=== PATIENT | female | born 1955 | race Caucasian/White ===

== ENCOUNTER 2023-06-11 12:00 | Outpatient (RCR) | payer MEDICARE, SELFPAY | END 2023-06-12 15:29 | disposition home or self-care (01) | LOC: HO.PT 12:00 | PROVIDERS: PCP Nurse Practitioner Family; Visit Provider Orthopaedic Surgery | DX: M17.11 Unilateral primary osteoarthritis, right knee (principal) | CPT/HCPCS: 97110; 97140; 97161; 97530 ==

== ENCOUNTER 2023-06-25 10:45 | Outpatient (REF) | payer MEDICARE, SELFPAY ==
[2023-06-25 14:05] LABS: MANUAL DIFF FLAG NO
[2023-06-25 14:13] LABS: Basophils Percent Auto 0.6 % (0-2); Eosinophils Absolute Auto 0.2 X10*3/uL (0.0-0.4); Eosinophils Percent Auto 2.4 % (0-4); Hematocrit 39.3 % (37.0-47.0); Imm Gran Abs Auto 0.02 X10*3/uL (0.00-0.03); Imm Gran Pct Auto 0.3 % (0.0-0.4); Lymphocytes Absolute Auto 1.9 X10*3/uL (1.2-4.9); Lymphocytes Percent Auto 30.6 % (20-40); Mean Corpuscular HGB Conc 33.1 g/dl (31.0-35.0); Mean Corpuscular Hemoglobin 29.4 pg (27.0-33.0); Mean Corpuscular Volume 88.9 fL (80.0-98.0); Mean Platelet Volume 10.4 fL (9.4-12.3); Monocytes Absolute Auto 0.7 X10*3/uL (0.1-1.2); Monocytes Percent Auto 10.4 % (2-11); Neutrophils Absolute Auto 3.5 x10*3/uL (2.0-8.3); Neutrophils Percent Auto 55.7 % (45-73); Platelet Count 299 X10*3/uL (160-400); Red Blood Count 4.42 X10*6/uL (4.20-5.50); Red Cell Distribution Width 12.6 % (11.0-16.0); White Blood Count 6.3 X10*3/uL (4.8-10.8)
[2023-06-25 14:18] LABS: Estimated Average Glucose 171 mg/dL; Hemoglobin A1c % 7.6 % (<6.0)
[2023-06-25 14:23] LABS: Alanine Aminotransferase 41 U/L (0-31); Albumin Level 4.2 g/dL (3.5-5.0); Alkaline Phosphatase 123 U/L (39-117); Anion Gap 13 (12-20); Aspartate Amino Transferase 34 U/L (5-31); Bilirubin Total 0.6 mg/dL (0.0-1.0); Blood Urea Nitrogen 10 mg/dL (9-16); Calcium 9.9 mg/dL (8.4-10.2); Carbon Dioxide 25 mmol/L (22-29); Chloride 104 mmol/L (96-108); Cholesterol 286 mg/dL (<200); Estimated Glomerular Filt Rate > 60; Glucose Random 191 mg/dL (60-115); HDL Cholesterol 49 mg/dL (>40); LDL Cholesterol Calculated 175 mg/dL (<100); Potassium 4.3 mmol/L (3.3-5.1); Sodium 138 mmol/L (135-145); Total Protein 7.5 g/dL (6.5-8.0); Triglycerides 311 mg/dL (<150)
[2023-06-25 14:42] LABS: Thyroid Stimulating Hormone 1.06 uIU/mL (0.32-4.0)
[2023-06-25 14:46] LABS: Creatinine Urine 29.46 mg/dL; Microalbum/Creatinine Ratio Ur 33.9 ug/mg cr (<30)
== END 2023-06-25 10:46 | disposition home or self-care (01) ==
LOC: HO.10HDL 10:45
PROVIDERS: Visit Provider Internal Medicine
DX: E03.8 Other specified hypothyroidism (principal); E11.9 Type 2 diabetes mellitus without complications; E78.00 Pure hypercholesterolemia, unspecified; I10 Essential (primary) hypertension; Z79.01 Long term (current) use of anticoagulants
CPT/HCPCS: 36415; 80053; 80061; 82043; 82570; 83036; 84443; 85025

== ENCOUNTER 2023-07-11 11:22 | Outpatient (REF) | payer MEDICARE, SELFPAY ==
--- NOTE | ~2023-07-11 | XR_ITS ---
EXAMINATION: XR HAND, RIGHT CLINICAL INFORMATION: Right fifth finger pain status-post fall. COMPARISON: None available. TECHNIQUE: PA, lateral, and oblique views of the right hand. FINDINGS: Bony alignment and mineralization are normal. There is a neutral ulnar variance. There is moderate to marked osteoarthritic change of the interphalangeal joint of the thumb and of the second, third and fifth distal interphalangeal joints. There is mild osteoarthritic change of the first metacarpophalangeal joint. There is moderate osteoarthritic change of the first carpometacarpal joint. No fracture or dislocation is seen. The proximal and distal carpal rows are intact. No focal bone erosion is seen. There is no focal soft tissue swelling, gas or foreign body. XR/XR hand RT min 3V IMPRESSION: There is multi-focal osteoarthritic change of the right hand and wrist, as detailed. No abnormal bone erosion is noted. No fracture or dislocation is seen.
== END 2023-07-11 11:23 | disposition home or self-care (01) ==
LOC: HO.XRAY 11:22
PROVIDERS: PCP Internal Medicine; Visit Provider Internal Medicine
DX: S69.91XD Unspecified injury of right wrist, hand and finger(s), subsequent encounter (principal)
CPT/HCPCS: 73130

== ENCOUNTER 2023-10-03 08:58 | Outpatient (REF) | payer MEDICARE, SELFPAY ==
[2023-10-03 10:20] LABS: Estimated Average Glucose 177 mg/dL; Hemoglobin A1c % 7.8 % (<6.0)
[2023-10-03 10:37] LABS: Alanine Aminotransferase 52 U/L (0-31); Albumin Level 4.1 g/dL (3.5-5.0); Alkaline Phosphatase 128 U/L (39-117); Anion Gap 14 (12-20); Aspartate Amino Transferase 32 U/L (5-31); Bilirubin Total 0.7 mg/dL (0.0-1.0); Blood Urea Nitrogen 16 mg/dL (9-16); Calcium 9.5 mg/dL (8.4-10.2); Carbon Dioxide 24 mmol/L (22-29); Chloride 103 mmol/L (96-108); Cholesterol 277 mg/dL (<200); Estimated Glomerular Filt Rate > 60; Glucose Random 167 mg/dL (60-115); HDL Cholesterol 51 mg/dL (>40); LDL Cholesterol Calculated 160 mg/dL (<100); Potassium 4.5 mmol/L (3.3-5.1); Sodium 136 mmol/L (135-145); Total Protein 7.5 g/dL (6.5-8.0); Triglycerides 330 mg/dL (<150)
== END 2023-10-03 08:59 | disposition home or self-care (01) ==
LOC: HO.LAB 08:58
PROVIDERS: PCP Internal Medicine; Visit Provider Internal Medicine
DX: E11.65 Type 2 diabetes mellitus with hyperglycemia (principal); E78.00 Pure hypercholesterolemia, unspecified; I10 Essential (primary) hypertension; S67.198A Crushing injury of other finger, initial encounter
CPT/HCPCS: 36415; 80053; 80061; 83036

== ENCOUNTER 2024-01-02 09:37 | Outpatient (REF) | payer MEDICARE, SELFPAY ==
[2024-01-02 10:34] LABS: Estimated Average Glucose 189 mg/dL; Hemoglobin A1c % 8.2 % (<6.0)
[2024-01-02 11:04] LABS: Alanine Aminotransferase 50 U/L (0-31); Alkaline Phosphatase 124 U/L (39-117); Anion Gap 14 (12-20); Aspartate Amino Transferase 39 U/L (5-31); Bilirubin Total 0.6 mg/dL (0.0-1.0); Blood Urea Nitrogen 16 mg/dL (9-16); Calcium 9.3 mg/dL (8.4-10.2); Carbon Dioxide 22 mmol/L (22-29); Chloride 107 mmol/L (96-108); Cholesterol 111 mg/dL (<200); Estimated Glomerular Filt Rate > 60; Glucose Random 191 mg/dL (60-115); HDL Cholesterol 43 mg/dL (>40); LDL Cholesterol Calculated 34 mg/dL (<100); Potassium 4.7 mmol/L (3.3-5.1); Sodium 138 mmol/L (135-145); Total Protein 7.1 g/dL (6.5-8.0); Triglycerides 171 mg/dL (<150)
[2024-01-02 11:13] LABS: Thyroid Stimulating Hormone 0.46 uIU/mL (0.32-4.0)
== END 2024-01-02 09:38 | disposition home or self-care (01) ==
LOC: HO.LAB 09:37
PROVIDERS: PCP Internal Medicine; Visit Provider Internal Medicine
DX: E03.8 Other specified hypothyroidism (principal); E11.65 Type 2 diabetes mellitus with hyperglycemia; E78.00 Pure hypercholesterolemia, unspecified; I10 Essential (primary) hypertension; Z68.30 Body mass index [BMI] 30.0-30.9, adult
CPT/HCPCS: 36415; 80053; 80061; 83036; 84443

== ENCOUNTER 2024-01-24 08:41 | Outpatient (REF) | payer MEDICARE, SELFPAY ==
--- NOTE | ~2024-01-24 | US_ITS ---
EXAMINATION: US ABDOMEN COMPLETE CLINICAL INFORMATION: Elevated LFTs. COMPARISON: None available. TECHNIQUE: Real-time imaging of the abdominal viscera. FINDINGS: PANCREAS: Normal. ABDOMINAL AORTA: The proximal, mid, and distal segments are normal in caliber. INFERIOR VENA CAVA: Visualized portions are normal. LIVER: The left lobe of the liver is slightly decreased in size, measures 7.7 cm. Otherwise, the liver is within normal limits. The liver contour is normal. Parenchymal echogenicity is normal. No focal hepatic lesion. There is no intrahepatic biliary duct dilatation seen. GALLBLADDER: Surgically absent. COMMON BILE DUCT: Normal in caliber measuring 0.5 cm in diameter. RIGHT KIDNEY: Normal. No hydronephrosis. No renal calculi or focal parenchymal lesions. The kidney measures 12.4 cm in maximum dimension. LEFT KIDNEY: 0.6 x 0.5 x 0.5 cm upper pole and 0.2 x 0.2 x 0.2 cm lower pole nonobstructing renal calculi are seen. No hydronephrosis or focal parenchymal lesions. The kidney measures 11.4 cm in maximum dimension. SPLEEN: Normal. The spleen measures 10.3 cm in maximum dimension. FREE FLUID: None. US/US abdomen complete IMPRESSION: 1. The left lobe of the liver is slightly decreased in size. 2. Prior cholecystectomy. 3. 2 small nonobstructing left renal calculi.
== END 2024-01-24 08:42 | disposition home or self-care (01) ==
LOC: HO.US 08:41
PROVIDERS: PCP Internal Medicine; Visit Provider Internal Medicine
DX: R94.5 Abnormal results of liver function studies (principal)
CPT/HCPCS: 76700

== ENCOUNTER 2024-04-09 12:01 | Outpatient (REF) | payer MEDICARE, SELFPAY ==
[2024-04-09 13:11] LABS: MANUAL DIFF FLAG NO
[2024-04-09 13:16] LABS: Basophils Absolute Auto 0.1 X10*3/uL (0.0-0.2); Basophils Percent Auto 0.8 % (0-2); Eosinophils Absolute Auto 0.2 X10*3/uL (0.0-0.4); Eosinophils Percent Auto 2.3 % (0-4); Imm Gran Abs Auto 0.02 X10*3/uL (0.00-0.03); Imm Gran Pct Auto 0.3 % (0.0-0.4); Lymphocytes Absolute Auto 2.2 X10*3/uL (1.2-4.9); Lymphocytes Percent Auto 27.8 % (20-40); Mean Corpuscular HGB Conc 33.3 g/dl (31.0-35.0); Mean Corpuscular Hemoglobin 29.3 pg (27.0-33.0); Mean Corpuscular Volume 87.8 fL (80.0-98.0); Monocytes Absolute Auto 0.8 X10*3/uL (0.1-1.2); Monocytes Percent Auto 10.2 % (2-11); Neutrophils Absolute Auto 4.5 x10*3/uL (2.0-8.3); Neutrophils Percent Auto 58.6 % (45-73); Platelet Count 302 X10*3/uL (160-400); Red Blood Count 4.44 X10*6/uL (4.20-5.50); White Blood Count 7.7 X10*3/uL (4.8-10.8)
[2024-04-09 13:32] LABS: Alanine Aminotransferase 27 U/L (0-31); Albumin Level 4.2 g/dL (3.5-5.0); Alkaline Phosphatase 96 U/L (39-117); Anion Gap 10 (12-20); Aspartate Amino Transferase 23 U/L (5-31); Bilirubin Total 0.6 mg/dL (0.0-1.0); Blood Urea Nitrogen 20 mg/dL (9-16); Calcium 9.5 mg/dL (8.4-10.2); Carbon Dioxide 27 mmol/L (22-29); Chloride 105 mmol/L (96-108); Estimated Glomerular Filt Rate > 60; Glucose Random 143 mg/dL (60-115); Potassium 4.5 mmol/L (3.3-5.1); Sodium 137 mmol/L (135-145); Total Protein 7.5 g/dL (6.5-8.0)
[2024-04-09 13:47] LABS: Creatinine Urine 37.07 mg/dL; Estimated Average Glucose 180 mg/dL; Hemoglobin A1c % 7.9 % (<6.0); Microalbumin Urine < 5.0 mg/L
[2024-04-10 03:57] LABS: HBS Num1 57.16 mIU/mL (0-7.99); HBc Num1 0.09 S/CO (0.00-0.79); HBsAGNum1 0.37 S/CO (0.00-0.99); Hepatitis B Core Antibody Nonreactive (Nonreactive); Hepatitis B Surface Antigen Negative (Negative); ~Hepatitis B Surface Antibody REACTIVE (Nonreactive); ~Hepatitis C Antibody Nonreactive (Nonreactive)
[2024-04-10 15:43] LABS: HCV RNA PCR Qn <1.18 NOT DETECTED Log IU/mL (NOT DETECTED); HCV RNA PCR Qn <15 NOT DETECTED IU/mL (NOT DETECTED)
== END 2024-04-09 12:02 | disposition home or self-care (01) ==
LOC: HO.10HDL 12:01
PROVIDERS: Visit Provider Internal Medicine
DX: E03.8 Other specified hypothyroidism (principal); E11.65 Type 2 diabetes mellitus with hyperglycemia; E78.00 Pure hypercholesterolemia, unspecified; R74.01 Elevation of levels of liver transaminase levels; Z79.01 Long term (current) use of anticoagulants
CPT/HCPCS: 36415; 80053; 82570; 83036; 85025; 86704; 86706; 86803; 87340; 87522

== ENCOUNTER 2024-08-03 08:00 | Outpatient (REF) | payer MEDICARE, SELFPAY ==
--- NOTE | ~2024-08-03 | XR_ITS ---
EXAMINATION: XR HAND RIGHT CLINICAL INFORMATION: Pain in right hand M79.641. COMPARISON: XR Right hand 07/11/2023 TECHNIQUE: PA, lateral, and oblique views of the right hand. FINDINGS: No acute fracture or malalignment. No active erosions. Similar degenerative findings including severe osteoarthritis of the 2nd and 5th DIP joints, moderate at the 1st CMC and IP joints. No new abnormality. XR/XR hand RT min 3V IMPRESSION: No acute abnormality. 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 Electronically signed by: Marlo Katz MD 09/10/2024 08:36 AM [facility]
== END 2024-08-03 08:01 | disposition home or self-care (01) ==
LOC: HO.HOSX 08:00
DX: M79.641 Pain in right hand (principal); M77.8 Other enthesopathies, not elsewhere classified
CPT/HCPCS: 20550; 73130; 99202; J1100; J2003

== ENCOUNTER 2024-08-03 09:15 | Outpatient (AMB) | payer MEDICARE, SELFPAY ==
--- NOTE | 2024-08-03 09:30 | A.OFFVIS_ITS ---
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 Patient reports her pain is at her MCP joint of her right thumb. She expresses difficulty with lifting, gripping, and grasping due to her symptoms. Activities she has trouble with are opening bottles and writing. Denies numbness and tingling. Ibuprofen and Tylenol offer her no relief. Denies past medical treatment to bilateral hands. 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 The patient states that this pain is primarily located on the volar aspect of her right thumb and worsens with flexion of the right thumb. Patient denies any locking or catching of the right thumb, but states that her pain is primarily focused at the level of the A1 becca of the right thumb. Denies any pain at the basal joint or MCP joint. Denies any numbness or tingling in the right hand. No other acute complaints or concerns at this time. 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 Neuro: Normal sensation of the tips of all digits of the right hand at this time Vascular: Cap refill brisk Pain: Significant tenderness to palpation of the A1 becca of the right thumb Patient reports pain with both active and passive flexion of the right thumb, on the volar aspect and primarily at the level of the A1 becca No tenderness to palpation of the basal joint Negative CMC grind No tenderness to palpation of the MCP joint of the right thumb No ligamentous laxity with varus and valgus testing ROM: With encouragement, patient was able to make a closed fist and extend all digits of the right hand fully Skin: No lacerations or abrasions. General: No ecchymosis, erythema, or evidence of infection. Psych: Appears grossly normal Affect normal Attitude cooperative Office Procedures AMB Tendon Injection Tendon Injection Details: Trigger injection right thumb 47561-[id number] Tendon Sheath Injection All charges added?: Procedure code (CPT) selection complete Assessment & Plan Assessment & Plan (1) Tendinitis of flexor tendon of right hand: Code(s): M77.8 - Other enthesopathies, not elsewhere classified Category: Medical Plan 1. Pre trigger tendinitis of flexor tendon of right thumb Ongoing for 3 months Patient is educated about this condition Patient is educated about the typical recovery course The risks and benefits of a steroid injection including but not limited to risk of damage to blood vessels, nerves, tendons, infection, skin bleaching, failure to improve symptoms, increased pain, and possible need for further injections or other intervention were discussed with the patient and the patient wishes to proceed with the steroid injection. Once consent was obtained, I sterilely prepped the area over the A1 becca of the flexor tendon sheath of the right thumb. I then injected the flexor tendon sheath with a combination of 1 mL of dexamethasone (4mg/ml), and 1% lidocaine. The patient tolerated the procedure well with no complications. If the patient continues to have locking and catching 4-6 weeks following this injection, they may call to schedule appointment to discuss alternative treatment options Patient was also referred to occupational therapy for range of motion and strengthening of the right hand, particularly the thumb Follow-up prn Orders: Orders OT Evaluation and Treatment Today M77.8 - Other enthesopathies, not elsewhere classified XR hand RT min 3V Today M79.641 - Pain in right hand Coding Level of Care Code New Pt Level 3 (43420) Diagnoses Tendinitis of flexor tendon of right hand M77.8 CPT Codes Tendon Injection - Tendon Injection 1: 49985-Vctptt Tendon Sheath Injection ([id number])
[2024-08-03 09:37] VITALS: BMI 27.8
== END 2024-08-03 10:15 | disposition home or self-care (01) ==
PROVIDERS: PCP Internal Medicine
DX: M77.8 Other enthesopathies, not elsewhere classified (principal)
CPT/HCPCS: 20550; 99203

== ENCOUNTER 2024-08-04 11:54 | Outpatient (REF) | payer MEDICARE, SELFPAY ==
[2024-08-04 13:06] LABS: MANUAL DIFF FLAG NO
[2024-08-04 13:13] LABS: Basophils Absolute Auto 0.1 X10*3/uL (0.0-0.2); Basophils Percent Auto 0.5 % (0-2); Eosinophils Absolute Auto 0.1 X10*3/uL (0.0-0.4); Eosinophils Percent Auto 1.1 % (0-4); Hematocrit 36.6 % (37.0-47.0); Hemoglobin 12.5 g/dl (12.0-16.0); Imm Gran Abs Auto 0.07 X10*3/uL (0.00-0.03); Imm Gran Pct Auto 0.5 % (0.0-0.4); Lymphocytes Absolute Auto 2.8 X10*3/uL (1.2-4.9); Lymphocytes Percent Auto 20.9 % (20-40); Mean Corpuscular HGB Conc 34.2 g/dl (31.0-35.0); Mean Corpuscular Hemoglobin 29.6 pg (27.0-33.0); Mean Corpuscular Volume 86.5 fL (80.0-98.0); Mean Platelet Volume 9.9 fL (9.4-12.3); Monocytes Absolute Auto 1.4 X10*3/uL (0.1-1.2); Monocytes Percent Auto 10.1 % (2-11); Neutrophils Absolute Auto 8.9 x10*3/uL (2.0-8.3); Neutrophils Percent Auto 66.9 % (45-73); Platelet Count 307 X10*3/uL (160-400); Red Blood Count 4.23 X10*6/uL (4.20-5.50); Red Cell Distribution Width 12.8 % (11.0-16.0); White Blood Count 13.3 X10*3/uL (4.8-10.8)
[2024-08-04 13:31] LABS: Albumin Level 4.1 g/dL (3.5-5.0); Alkaline Phosphatase 89 U/L (39-117); Anion Gap 14 (12-20); Aspartate Amino Transferase 37 U/L (5-31); Bilirubin Total 0.4 mg/dL (0.0-1.0); Blood Urea Nitrogen 16 mg/dL (9-16); Calcium 9.4 mg/dL (8.4-10.2); Carbon Dioxide 26 mmol/L (22-29); Chloride 102 mmol/L (96-108); Estimated Glomerular Filt Rate > 60; Glucose Random 177 mg/dL (60-115); Potassium 4.2 mmol/L (3.3-5.1); Sodium 138 mmol/L (135-145); Total Protein 7.4 g/dL (6.5-8.0)
[2024-08-04 13:35] LABS: Estimated Average Glucose 206 mg/dL; Hemoglobin A1C 233.5647 umol/L; Hemoglobin A1c % 8.8 % (<6.0); Total Hemoglobin (HGBA1C) 3196.0812 umol/L
[2024-08-04 14:25] LABS: Alanine Aminotransferase 67 U/L (0-31)
[2024-08-04 20:45] LABS: Thyroid Stimulating Hormone 2.68 uIU/mL (0.32-4.0)
== END 2024-08-04 11:55 | disposition home or self-care (01) ==
LOC: HO.10HDL 11:54
PROVIDERS: Visit Provider Internal Medicine
DX: E11.65 Type 2 diabetes mellitus with hyperglycemia (principal); I10 Essential (primary) hypertension; I25.810 Atherosclerosis of coronary artery bypass graft(s) without angina pectoris; M79.641 Pain in right hand; Z79.01 Long term (current) use of anticoagulants
CPT/HCPCS: 36415; 80053; 83036; 84443; 85025

== ENCOUNTER 2024-09-07 08:03 | Outpatient (RCR) | payer MEDICARE, SELFPAY ==
--- NOTE | 2024-08-17 12:04 | MHC.OT.OEV ---
[address] [phone] F: [phone] Occupational Therapy Evaluation Patient Name: Sweta Blum Diagnosis: (R) Pre-trigger thumb Date of Onset: Date of Surgery: Attending Provider: Cecil Davidson Prescribed Treatment: MD Follow Up Appointment: History of Current Condition: Patient is a 68 y/o Bermudian speaking female whom is (R)hand dominate who was referred to skilled OT with a diagnosis of pre- trigger thumb. She reported she has had pain in her thumb for the last 3 months that is 9/10 pain at times and denies numbness/tingling. She received a cortisone injection on 08/03 but stated her thumb still hurts. She reported her PLOF as (I)ADLs/IADLs and lives with her . 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 She reported she has the most difficulty with writing, washing dishes, and carrying items saying, everything is difficult for me. She enjoys Gardening, reading. 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 Skin and Soft Tissue Assessment Skin and Soft Tissue: Comments: Intact, ivan nodules on 1st, 2nd digits and 5th Catching noticed at the IP and MP with passive ROM Nerve assessment Ulnar Nerve: Median Nerve: Radial Nerve: Comments: Sensory Assessment Temperature: Light Touch: Proprioception: Vibration: Comments: Edema Assessment Upper Extremity: Lower Extremity: Comments: Dexterity Assessment Dexterity: Right Impaired Comments: Finger opposition impaired Special Tests Comments: AROM(PROM) Strength Cervical Cervical Flexion: Cervical Extension: Cervical Lateral Flexion: Cervical Rotation: Comments: Shoulder Flexion: Extension: Abduction: Internal Rotation: External Rotation: Comments: WFL Flexion: Extension: Abduction: Internal Rotation: External Rotation: Comments: WFL Elbow Flexion: Extension: Pronation: Supination: Comments: WFL Flexion: Extension: Pronation: Supination: Comments: WFL Wrist Flexion: Extension: Ulnar Deviation: Radial Deviation: Comments: WFL Flexion: Extension: Ulnar Deviation: Radial Deviation: Comments: Thumb Thumb CMC Flexion: 10 Thumb MCP Flexion: 37/ 47 Thumb IP Flexion: 37/40 Radial Abduction: Palmar Abduction: [place] (Kapandji 0-10): Comments: Digits Index MCP: PIP: DIP: Long MCP: PIP: DIP: Ring MCP: PIP: DIP: Small MCP: PIP: DIP: Comments: WFL Gross Grasp: Lateral Pinch: Two-Point Pinch: Three-Jaw Jhonny: Comments: Patient Education 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 Barriers to Learning: Readiness for Learning: Who was educated? Comments: Plan of Care Assessment: Based on initial OT evaluation patient presents with impaired ROM of the (R)Thumb, pain with movement and noticeable catching of the thumb at the IP joint with passive ROM indicating trigger thumb. Due to the documented impairments it is recommended that patient receive skilled OT intervention in order to maintain joint integrity. Thank you for your referral. STG Duration: 2 weeks Short Term Goals: Patient will tolerate wearing MP blocking orthosis for at least 6 hours 1-2weeks Patient will be (I) with PROM of thumb LTG Duration: 4 weeks Caddy/Caddie Supervisor Goals: Patient will be (I) with joint protection techniques Frequency and Duration: The patient will be seen 1-2x a week for 4 weeks Treatment Plan: Therapeutic Exercise Therapeutic Activity Home Exercise Program Splinting Patient Education Desensitization/Sensory Re-ed Edema Control ADL Training Ultrasound NMES Iontophoresis Paraffin Fluidotherapy MHP Cold Packs Joint Mobilization Soft Tissue Mobilization Kinesiotaping Other (see comments) Skilled OT eval and treat Electronically Signed By: RENNY Silvestre/Magali, CLT Reviewed/agree with student documentation: Therapist: Please sign and return to therapist, Thank you for your referral.
--- NOTE | 2024-10-13 11:52 | MHC.OT.DC ---
[address] [phone] F: [phone] Occupational Therapy Discharge Note Patient Name: Sweta Blum Provider: Cecil Davidson Diagnosis: (R) Pre-trigger thumb Date of Surgery: Date of Evaluation: 08/14/24 Date of Discharge: Treatments to Date: 4 Cancellations to Date: No Shows to Date: Discharge Status: Patient Elected to Stop Discharge Summary: Continued with intrinsic exercises and PROM of thumb. Patient is demonstrating good carryover of techniques. Electronically Signed By: Sol Morales OTR/L, CLT Reviewed/agree with student documentation: Therapist: Please Sign and return to therapist, thank you for your referral.
== END 2024-10-13 11:53 | disposition home or self-care (01) ==
LOC: HO.OT 08:03
PROVIDERS: PCP Internal Medicine
DX: M77.8 Other enthesopathies, not elsewhere classified (principal)
CPT/HCPCS: 29130; 97110; 97140; 97165; 97760

== ENCOUNTER 2024-10-28 09:21 | Outpatient (REF) | payer MEDICARE, SELFPAY ==
--- OUTSIDE RECORDS SUMMARY | 2024-10-28 10:29 | XMS_ITS ---
Author Organization [facility] Address [address] [place] [address] Care Team Providers Care Night Guard Name Role Phone AnnTalia olmos Primary Care Provider Unavailab Rohith Goldstein Jr [phone] REASON FOR VISIT pathology/ 5 year colon recall Encounters Encounter Location Date Provider Diagnosis [facility] [address] [place] [address] 10/01/2024 Rohith Lemus Jr Plan Of Treatment No Information Progress Notes * FAHEEM SMITHB: 955 (68 yo F)Acc No.[id number]:10/01/2024 Patient:?PRINCESS SMITH :1955???Age:68 Y???Sex:Female Address:[address] [place] [address], [id number] * true * Date:? Generated for Darwin matute/Ale/eTransmitting on:?10/28/2024 10:29 AM EST
--- OUTSIDE RECORDS SUMMARY | 2024-10-28 10:30 | XMS_ITS ---
Author Organization [facility] Address [address] [place] [address] Care Team Providers Care Registry Nurse Name Role Phone Talia Wright Primary Care Provider Unavailab Rohith Goldstein Jr REASON FOR VISIT abnormal findings in stool Encounters Encounter Location Date Provider Diagnosis [facility] [address] [place], [place] [id number] 09/25/2024 Rohith Lemus Jr Colon polyps K63.5 and Abnormal findings in stool R19.5 Assessments Encounter Date Diagnosis (ICD Code) Assessment Notes Treatment Notes Treatment Clinical Notes Section Notes 09/25/2024 Colon polyps (ICD-10 - K63.5) 09/25/2024 Abnormal findings in stool (ICD-10 - R19.5) Plan Of Treatment No Information Progress Notes * FAHEEM SMITHB: 955 (68 yo F)Acc No.[id number]:09/25/2024 COLON WITH MAC Patient:?PRINCESS SMITH Provider:?Rohith Lemus MD :1955???Age:68 Y???Sex:Female D ate:09/25/2024 Address:[address] [place], [place] [id number] Pcp:Talia Wright Subjective: * Chief Complaints: * ???1. Abnormal findings in s tool. * Medical History:? Objective: * Vitals:? Assessment: * Assessment: 1.?Colon polyps - K63.5 (Renae lionel)???2.?Abnormal findings in stool - R19.5??? Plan: * Treatment: * Procedure Codes:?41046 LESIO N REMOVAL COLONOSCOPY, 0529F INTRVL 3+YRS PTS CLNSCP DOCD * * The named appointment provid er may or may not be the originator of this progress note, and it is not deemed complete until electronically signed by the appointment provider. Sign off status: Pending * Provider:?Rohith Lemus MD Date:?0 09/25/2024 Generated for Darwin matute/Ale/Rubenitting on:?10/28/2024 10:30 AM EST
--- OUTSIDE RECORDS SUMMARY | 2024-10-28 10:30 | XMS_ITS ---
Author Organization [facility] Address [address] [place] [address] Care Team Providers Care Paper Control Clerk Name Role Phone Talia Wright Primary Care Provider Rohith Huddleston Jr Unavailable [phone] Allergies No Known Allergies REASON FOR VISIT Patient presents today for a POSITIVE COLOGUARD Medications Medication SIG (Take, Route, Frequency, Duration) Notes Start Date End Date Status Aspirin Low Dose 81 MG TAKE 1 TABLET BY MOUTH EVERY DAY Oral for 90 Active Sotalol HCl 80 MG Oral for 90 Active Eliquis 5 MG TAKE 1 TABLET BY DENTON TH TWICE A DAY FOR 90 DAYS Oral for 90 Active Lisinopril-hydroCHLOROthiazi de 10-12.5 MG TAKE 1 TABLET BY MOUTH EVERY DAY Oral for 90 Active metFORMIN HCl 1000 MG TAKE 1 TABLET BY M OUTH TWICE A DAY Oral for 90 Active Levothyroxine Sodium 88 MCG Oral for 90 Active Multaq 400 MG Oral for 30 Acti ve Immunizations Vaccine Route Administration Date Status Comme nts Influenza Unknown 08/27/2024 Refused Social History Tobacco Use: Social History Observation Description Date Details (start date - stop date) Never Smoker NA - NA Tobacco Use/Smoking Question Answer Notes Patient is a nonsmoker Alcohol Screen Question Answer Notes Did you have a drink containing alcohol in the p ast year? No Points 0 Interpretation Negative Problems Problem Type SNOMED Code ICD Code Onset Dates Problem Status W/U Status Risk Notes Problem [id number] Abnormal finding s in stool (R19.5) Active confirmed Problem [id number] alf (curre nt) use of anticoagulants (Z79.01) Active confirmed Vital Signs Temperature 97.8 degrees Fahrenheit 08/27/19 25 Blood pressure systolic 000 mm Hg 08/27/19 25 Blood pressure diastolic 00 mm Hg 025 Height 5 ft 3 in in 08/27/2024 Weight 161 lb 4 oz lbs 08/27/2024 BMI 28.56 kg/m2 08/27/2024 Encounters Encounter Location Date Provider Diagnosis [facility] [address] [address] [place] [address] 08/27/2024 Rohith Lemus Jr Abnormal findings in stool R19.5 and alf (current) use of anticoagulants Z79.01 Assessments Encounter Date Diagnosis (ICD Code) Assessment Notes Treatment Notes Treatment Clinical Notes Section Notes 08/27/2024 Abnormal findings in stool (ICD-10 - R19.5) Colonoscopy material was printed We discussed colonoscopy today including risks and benefits of the procedure. She understands these and agrees to proceed. This will be scheduled at her convenience. She is advised stop aspirin one week before the procedure, Eliquis 3 days before the procedure, and metformin the day before the procedure. 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 She understands these and agrees to proceed. This will be scheduled at her convenience. She is advised stop aspirin one week before the procedure, Eliquis 3 days before the procedure, and metformin the day before the procedure. Plan Of Treatment Treatment Notes Assessment Notes Abnormal findings in stool Colonoscopy m aterial was printed Future Test Test Name Order Date COLONOSCOPY 08/27/2024 Next Appt Details Follow Up: 1 Year, Reason: Progress Notes * SHAWN SMITHAMBROSIOB: [birth year] (68 yo F)Acc No.[id number]:08/27/2024 Progress Notes Patient:?PRINCESS SMITH Provider:?Rohith Lemus MD :1955???Age:68 Y???Sex:Female D ate:08/27/2024 Address:[address] [place] [address] [place] Pcp:Talia Wright Subjective: * Chief Complaints: * ???1. Patient presents today for a POSITIVE COLOGUARD. * HPI: ???New symptom(s):? The patient is a 68-year-old woman seen today in consultation. She returned stool DNA testing through her primary care providers office which was reported as positive. Those records are not available but will be obtained. She has no complaints of rectal bleeding or change in her bowel habits. She states colonoscopy done 20 years ago was normal at another facility. We will obtain those records and review them if possible. She has no personal or family history colon cancer. * ROS:?General/Constitutional:?Change in appetite?denies.?Fatigue?denies.?ENT:?Patient denies?difficulty swallowing.?Respiratory:?Patient denies?shortness of breath.?Cardiovascular:?Patient denies?chest pain.?Gastrointestinal:?Comments?See HPI for details.?Genitourinary:?Difficulty urinating?denies.?Incontinence?denies.?Musculoskeletal:?Patient denies?muscle aches.?Skin:?Patient denies?pruritis.?Neurologic:?Patient denies?low back pain.?Psychiatric:?Patient denies?mental or physical abuse.? * Medical History:?Diabetes me llitus type 2, Atrial fibrillation, Coronary artery disease with history of stent placement, Hypertension. * Family History:?Father: dece ased.?Mother: .? No family history of colon cancer or liver cancer. * Social History:?Tobacco Use:?Tobacco Use/Smoking?Patient is a?nonsmoker.?Drugs/Alcohol:?Alcohol Screen?Did you have a drink containing alcohol in the past year??No,?Points?0,?Interpretation?Negative.?Miscellaneous:?Marital status: . Occupation: retired. * Medications:?Taking Multaq 4 00 MG Tablet Oral , Taking Levothyroxine Sodium 88 MCG Tablet Oral , Taking Aspirin Low Dose 81 MG Tablet Delayed Release TAKE 1 TABLET BY MOUTH EVERY DAY Oral , Taking Sotalol HCl 80 MG Tablet Oral , Taking Eliquis 5 MG Tablet TAKE 1 TABLET BY MOUTH TWICE A DAY FOR 90 DAYS Oral , Taking Lisinopril-hydroCHLOROthiazide 10-12.5 MG Tablet TAKE 1 TABLET BY MOUTH EVERY DAY Oral , Taking metFORMIN HCl 1000 MG Tablet TAKE 1 TABLET BY MOUTH TWICE A DAY Oral , Medication List reviewed and reconciled with the patient * Allergies:?N.K.D.A. Objective: * Vitals:?Wt: 161 lb 4 oz, Ht: 5 ft 3 in, BMI:28.56 Index, BP: 000/00 mm Hg, Temp: 97.8. * Examination: ???General Examination: ?GENERAL APPEARANCE:?in no acute distress.?HEAD:?normocephalic.?EYES:?sclera non-icteric.?ORAL CAVITY:?mucosa moist.?NECK/THYROID:?no lymphadenopathy.?SKIN:?anicteric.?HEART:?S1, S2 normal, no murmurs.?LUNGS:?clear to auscultation bilaterally.?CHEST:?normal shape and expansion.?ABDOMEN:?soft, nontender, nondistended, bowel sounds present, no organomegaly .?EXTREMITIES:?no clubbing, cyanosis, or edema.?PSYCH:?cognitive function intact.? 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 We discussed colonoscopy tod ay including risks and benefits of the procedure. She understands these and agrees to proceed. This will be scheduled at her convenience. She is advised stop aspirin one week before the procedure, Eliquis 3 days before the procedure, and metformin the day before the procedure. Plan: * Treatment: Notes: Colonoscopy material was printed?? * Immunizations:? Influenza (Not administered - Refused: Patient decision) * Procedure Codes:?3017F COLOR ECTAL CA SCREEN DOC REV, G9903 Pt scrn tbco id as non user, G9744 PATIENT NOT ELIG D/T ACTIVE DX HTN * Preventive Medicine:? ??Counseling:?Care goal follow-up plan:?Above Normal BMI Follow-up?Giving encouragement to exercise,?BMI management provided?Yes.? ??Urinary Incontinence:?Urinary Incontinence?Assessment:?Absent,?Plan of care documented:?No, reason not specified.? ??Screenings:?Fall Risk Screening?Fall Risk Assessment:?No falls in the past year,?Screening:?No falls in the past year,?Assessment:?Not performed, no reason specified,?Plan of Care:?Not documented, no reason specified.? * Follow Up:?1 Year * * Sign off status: Completed true * Provider:?Rohith Lemus MD Date:?0 08/27/2024 Generated for Darwin matute/Ale/Homersmitting on:?10/28/2024 10:29 AM EST History and Physical Notes * HPI (History of Present Illness) Category Sub-Category Detail Notes Category Not es New symptom(s) The patient i s a 68-year-old woman seen today in consultation. She returned stool DNA testing through her primary care providers office which was reported as positive. Those records are not available but will be obtained. She has no complaints of rectal bleeding or change in her bowel habits. She states colonoscopy done 20 years ago was normal at another facility. We will obtain those records and review them if possible. She has no personal or family history colon cancer. Examination Category Sub-Category Detail Notes Category Not es General Examination GENERAL APPEARANCE: in no acute di stress HEAD: normocephalic EYES: sclera non-icteric NECK/THYROID: no lymphadenopathy HEART: S1, S2 normal, no mu rmurs CHEST: normal shape and exp ansion LUNGS: clear to auscultatio n bilaterally ABDOMEN: soft, nontender, non distended, bowel sounds present, no organomegaly SKIN: anicteric EXTREMITIES: no clubbing, cyanosi s, or edema PSYCH: cognitive function i ntact ORAL CAVITY: mucosa moist
--- OUTSIDE RECORDS SUMMARY | 2024-10-28 10:30 | XMS_ITS | Patient Health Record ---
Author Organization [facility] Address [address] [place] [address] Care Team Providers Care Belt Puncher Name Role Phone Talia Wright Primary Care Provider Unavailab Rohith Goldstein Jr [phone] Allergies No Known Allergies Results Component Value Reference Range Notes Glucose, Whole Blood Reviewed date:09/25/2024 09:24:15 PM Interpretation: Performing Lab:[facility], [address] [place] [phone] Notes/Report: Glucose, Whole Blood 233 60-115 mg/dL METER # : [id number] Pathology Reviewed date:10/01/2024 01:41:04 PM Interpretation: Performing Lab:[facility], [address] [place] [id number] Notes/Report: ----- Name: Amadeo Smith Age/Sex: 68/F : 1955 Unit#: [id number] Attend Dr: Rohith Lemus MD Re09/25/24 Status : [facility] Location: [facility] Disch: ----- SPEC : [id number] RECD: 09/25/24 STATUS: MAURY ANGULO NUM: [id number] ARSEN: 09/25/24-[address]: Rohith Lemus MD ENTERED: 09/25/24 20 SP TYPE: Surgical OTHR DR: Talia Wright MD ORDERED: HE Stain/3, Gross Micro L4 Diagnosis Colon, polyp at 20 c m, polypectomy: Inflammatory polyp with surface erosion. Clinical History Pre-Op Dx: Positive Cologuard Post-Op Dx: Colon polyp Microscopic Description Microscopic sections reviewed. Material Received Polyp at 20 cm Gross Description Received in formalin labeled ?polyp at 20 cm? is an oval, polypoid portion of red-pink soft tissue measuring 1.2 x 0.9 x 0.6 cm. The outer surface is smooth. The base of the specimen is wilkins-white. The resection site measures 0.3 cm in diameter. The resection site is inked blue. The specimen i s trisected, wrapped in lens paper and entirely submitted for microscopic examinat ion, 3 pieces in cassette [facility]. [facility] Copies To: Talia Wright MD [facility] [address] [place] [address] [address] [place] [address] Rohith Lemus MD [address] [place] [address] ----- Signed (signature on file) Tessa Broussard MD 09/28/24 1504 ----- END OF REPORT Reason For Referral No Information Medications Medication SIG (Take, Route, Frequency, Duration) Notes Start Date End Date Status Levothyroxine Sodium 88 MCG Oral for 90 Active Aspirin Low Dose 81 MG TAKE 1 [...] TWICE A DAY Oral for 90 Active Multaq 400 MG [...] Problem Status W/U Status Risk Notes 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) Active confirmed Problem 655715666 Abnormal finding s in stool (R19.5) Active confirmed Vital Signs Temperature 97.8 degrees Fahrenheit 08/27/2024 Blood pressure diastolic 00 mm Hg 08/27/2024 Height 5 ft 3 in in 08/27/2024 Blood pressure systolic 000 mm Hg 08/27/2024 Weight 161 lb 4 oz lbs 08/27/2024 BMI 28.56 kg/m2 08/27/2024 Encounters Encounter Location Date Provider Diagnosis [facility] [address] [place], [place] [id number] 09/25/2024 Rohith Lemus Jr Colon polyps K63.5 and Abnormal findings in stool R19.5 [facility] [address] [place] [address] 08/27/2024 Rohith Lemus Jr Abnormal findings in stool R19.5 and 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 She understands these and agrees to proceed. This will be scheduled at her convenience. She is advised stop aspirin one week before the procedure, Eliquis 3 days before the procedure, and metformin the day before the procedure. 08/27/2024 Abnormal findings in stool (ICD-10 - R19.5) Colonoscopy material was printed We discussed colonoscopy today including risks and benefits of the procedure. She understands these and agrees to proceed. This will be scheduled at her convenience. She is advised stop aspirin one week before the procedure, Eliquis 3 days before the procedure, and metformin the day before the procedure. Plan Of Treatment Future Test Test Name Order Date COLONOSCOPY 08/27/2024 Insurance Providers Payer Name Payer Address Payer Phone Subscriber Number Group Number Insured Name Patient Relationship to Insured Coverage Start Date Coverage End Date [facility] [address] [place], [place] [id number] PRINCESS SMITH Self - patient is the insured Medical (General) History Medical History History ICD Code Diabetes mellitus type 2 Atrial fibrillation Coronary artery disease with history of stent placement Hypertension Surgical History Surgery Date(Month/Year)
[2024-10-28 10:51] LABS: Estimated Average Glucose 186 mg/dL; Hemoglobin A1C 219.4318 umol/L; Hemoglobin A1c % 8.1 % (<6.0)
[2024-10-28 11:16] LABS: Alanine Aminotransferase 24 U/L (0-31); Albumin Level 4.1 g/dL (3.5-5.0); Alkaline Phosphatase 81 U/L (39-117); Anion Gap 13 (12-20); Aspartate Amino Transferase 23 U/L (5-31); Bilirubin Total 0.5 mg/dL (0.0-1.0); Blood Urea Nitrogen 14 mg/dL (9-16); Calcium 9.2 mg/dL (8.4-10.2); Carbon Dioxide 22 mmol/L (22-29); Chloride 108 mmol/L (96-108); Estimated Glomerular Filt Rate > 60; Glucose Random 140 mg/dL (60-115); Potassium 4.3 mmol/L (3.3-5.1); Sodium 139 mmol/L (135-145); Total Protein 7.6 g/dL (6.5-8.0)
[2024-10-28 11:37] LABS: Thyroid Stimulating Hormone 6.59 uIU/mL (0.32-4.0)
== END 2024-10-28 09:22 | disposition home or self-care (01) ==
LOC: HO.10HDL 09:21
PROVIDERS: Visit Provider Internal Medicine
DX: E11.65 Type 2 diabetes mellitus with hyperglycemia (principal); I10 Essential (primary) hypertension; I25.810 Atherosclerosis of coronary artery bypass graft(s) without angina pectoris; M79.641 Pain in right hand; Z79.01 Long term (current) use of anticoagulants
CPT/HCPCS: 36415; 80053; 83036; 84443

== ENCOUNTER 2025-06-04 10:00 | Outpatient (REF) | payer MEDICARE, SELFPAY ==
[2025-06-04 10:27] LABS: Hematocrit 40.5 % (37.0-47.0); Hemoglobin 13.0 g/dl (12.0-16.0); Imm Gran Abs Auto 0.03 X10*3/uL (0.00-0.03); Imm Gran Pct Auto 0.4 % (0.0-0.4); Lymphocytes Absolute Auto 2.6 X10*3/uL (1.2-4.9); MANUAL DIFF FLAG NO; Mean Corpuscular HGB Conc 32.1 g/dl (31.0-35.0); Mean Corpuscular Hemoglobin 28.2 pg (27.0-33.0); Mean Corpuscular Volume 87.9 fL (80.0-98.0); NRBC Abs Auto 0.000 X10*3/uL (0.0-0.012); NRBC Pct Auto 0.0 /100WBC (0.0-0.2); Platelet Count 378 X10*3/uL (160-400); Red Blood Count 4.61 X10*6/uL (4.20-5.50); White Blood Count 8.5 X10*3/uL (4.8-10.8)
[2025-06-04 11:26] LABS: Microalbum/Creatinine Ratio Ur 9.9 ug/mg cr (<30)
[2025-06-04 17:25] LABS: Alanine Aminotransferase 29 U/L (0-31); Albumin Level 4.3 g/dL (3.5-5.0); Alkaline Phosphatase 82 U/L (39-117); Anion Gap 16 (12-20); Aspartate Amino Transferase 33 U/L (5-31); Blood Urea Nitrogen 13 mg/dL (9-16); Calcium 9.6 mg/dL (8.4-10.2); Carbon Dioxide 21 mmol/L (22-29); Chloride 106 mmol/L (96-108); Cholesterol 252 mg/dL (<200); Estimated Glomerular Filt Rate > 60; HDL Cholesterol 48 mg/dL (>40); Potassium 4.7 mmol/L (3.3-5.1); Sodium 138 mmol/L (135-145); Total Protein 7.6 g/dL (6.5-8.0); Triglycerides 290 mg/dL (<150)
[2025-06-04 17:32] LABS: Thyroid Stimulating Hormone 7.36 uIU/mL (0.32-4.0)
== END 2025-06-04 10:01 | disposition home or self-care (01) ==
LOC: HO.LAB 10:00
PROVIDERS: PCP Internal Medicine; Visit Provider Internal Medicine
DX: E11.65 Type 2 diabetes mellitus with hyperglycemia (principal); I10 Essential (primary) hypertension; E78.00 Pure hypercholesterolemia, unspecified; E03.9 Hypothyroidism, unspecified
CPT/HCPCS: 36415; 80053; 80061; 82043; 82570; 83036; 84443; 85025